=== PATIENT | male | born 1975 | race Caucasian/White ===

== ENCOUNTER 2025-03-21 18:52 | Emergency (ER) | payer BC, SELFPAY ==
[2025-03-21 19:04] VITALS: BP 161/86; PULSE 76; RESP 19; TEMP 36.9; O2SAT 96; BMI 30.7
--- OUTSIDE RECORDS SUMMARY | 2025-03-21 19:05 | XMS_ITS | Clinical Summary ---
Author Organization [employer] ([place], [place], [place], [place]) Address [address] [place] [address] Care Team Providers Care Health And Physical Education Professor Name Role Phone Asif Bowers MD Primary Care Provider [phone] Allergies No known active allergies Medications atorvastatin (LIPITOR) 40 MG tablet Take 1 tablet (40 mg total) by mouth nightly. Active cyclobenzaprine (FLEXERIL) 10 MG tablet Take 1 tablet (10 mg total) by mouth 3 (three) times daily as needed for muscle spasms. Active pantoprazole (PROTONIX) 40 MG tablet Take 1 tablet (40 mg total) by mouth daily. Active lisinopriL (PRINIVIL,ZESTRI L) 20 MG tablet Take 1 tablet (20 mg total) by mouth daily. Active metoprolol succinate (TOPROL-XL) 25 MG 24 hr tablet Take 1 tablet (25 mg total) by mouth daily. 01/27/2024 Active Active Problems Problem Noted Date Diagnosed Date Back pain 03/05/2024 03/05/2024 Resolved Problems Problem Noted Date Diagnosed Date Resolved Date Bradycardia 03/05/2024 03/05/2024 03/09/2024 Anxiety 03/05/2024 03/05/2024 03/09/2024 At risk for sleep apnea 03/05/2024 03/05/202402/17 Mediastinal adenopathy 02/06/202403/09 Gastroesophageal reflux disease 01/30/2024 01/30/2024 History of obstructive sleep apnea 01/30/2024202301/30/2024 Hyperlipidemia 01/30/2024 01/30/2024 01/30/2024 TIA (transient ischemic attack) 01/30/2024 01/30/2024 Pacemaker 01/30/2024 03/05/2024 Hypothyroidism 01/30/2024 01/30/2024 Angina pectoris 01/30/2024 01/30/2024 03/05/2024 Cardiac conduction disorder 01/30/2024 01/30/2024 03/05/2024 Pain 01/27/2024 01/30/2024 Hilar lymphadenopathy 01/27/20242023 Primary hypertension 08/23/2022 01/30/2024 024 Nonrheumatic aortic valve insufficiency 08/23/2022 0 01/30/2024 03/05/2024 Arteriosclerosis of coronary artery 08/05/202201/2903/05/2024 Overview (01/30/2024): a. LHC 09/08/2019: 40% LAD b. Echocardiogram 07/31/2019 EF 60%, mild AR, trace to mild MR, normal diastolic function, mild TR Obstructive sleep apnea syndrome 08/05/2022 01/30/20 24 03/05/2024 Sick sinus syndrome 08/23/2021 01/30/2024 01/30/20 Overview (01/30/2024): a. Status post pacemaker 04/2019 - Dr. 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 No 01/27/2024 Food Insecurity Answer Date Recorded Within the past 12 months, y ou worried that your food would run out before you got money to buy more. Never true 01/27/2024 Within the past 12 months, t he food you bought just didn't last and you didn't have money to get more. Never true 01/27/2024 Transportation Needs Answer Date Record ed In the past 12 months, has l ack of reliable transportation kept you from medical appointments, meetings, work or from getting things needed for daily living? No 01/27/2024 Financial Resource Strain Answer Date R ecorded How hard is it for you to pa y for the very basics like food, housing, medical care, and heating? Would you say it is: Not hard at all 01/27/2024 Employment Answer Date Recorded Do you want help finding or keeping work or a job? I do not need or want help 01/27/2024 Family and Community Support Answer Ji e Recorded If for any reason you need h elp with day-to-day activities such as bathing, preparing meals, shopping, managing finances, etc., do you get the help you need? I get all the help I need 01/27/2024 Feeling Lonely or Isolated 0 01/26 Educational Attainment Answer Date Avery rded Do you speak a language other than Bengali at [facility]? No 01/27/2024 Do you want help with school or training? For example, starting or completing job training or getting a high school diploma, GED or equivalent. No 01/27/2024 Physical Activity Answer Date Recorded Number of minutes of exercise per week 0 01/27/2024 Substance Use Answer Date Recorded How many times in the past y ear have you used prescription drugs for non-medical reasons? Never 01/27/2024 How many times in the past year have you used [place] legal drugs? Never 01/27/2024 Sex and Gender Information Value Date Recorded Sex Assigned at Male 02/20/2022 12:22 PM CDT Legal Sex Male 5:14 PM CDT Gender Identity Male 02/20/2022 12:22 PM CDT Sexual Orientation Not on file Last Filed Vital Signs Vital Sign Reading Time Taken Comments Blood Pressure 139/68 03/18/2024 1:10 PM EDT Pulse 81 03/18/2024 1:10 PM EDT Temperature 36.9 C (98.4 F) 03/18/2024 1:10 PM EDT Respiratory Rate 19 03/18/2024 1:10 PM EDT Oxygen Saturation 96% 03/18/2024 1:10 PM EDT ra Inhaled Oxygen Concentration - - Weight 103.4 kg (228 lb) 03/18/2024 1:10 PM EDT Height 180.3 cm (5' 11 ) 03/18/2024 1:10 PM EDT Body Mass Index 31.8 03/18/2024 1:10 PM EDT Plan of Treatment Health Maintenance Due Date Last Done Comments CT Colonography 1974 Colonoscopy 1974 Colorectal Cancer Screening 1974 FOBT/FIT 1974 Fit-DNA (Cologuard) 1974 Sigmoidoscopy 1974 Depression Screening (12+) 1986 HIV Screening 1989 Hepatitis C Screening 1992 Pneumococcal 50+ years (1 of 2 - PCV) 1993 DTAP/TDAP/TD VACCINES (2 - T d or Tdap) 10/22/2006 10/22/1996 COVID-19 VACCINE ( season) 2024 09/12/2021, 09/14/2020, 08/17/2020 Shingles Vaccine (Zoster) (1 of 2) 2024 Tobacco Cessation Counseling and Screening (12+) 03/18/2025 03/18/2024 Influenza Vaccine (#1) 2025 Lipid Panel 01/27/2027 01/28/2024, 02/22/2020 Medical Devices Implanted Type Area Gift Wrapper Device Identifier Shelf Expiration Date Model / Serial / Lot Pacemakers Pacemakers Subclavian Procedures Procedure Name Priority Date/Time Associated Diagnosis Comments LIPID PANEL STAT 01/28/2024 4:26 AM EDT from Last 3 Months or Most Recently Relevant to Health Maintenance Results * (ABNORMAL) Lipid panel (01/28/2024 4:26 AM EDT) Triglycerides 184 0 - 249 mg/dL 01/28/2024 5:[address] [facility] Cholesterol 140 0 - 199 mg/dL 01/28/2024 5:[address] [facility] Comment: 200 to 239 mg/dL = Moderate (borderline) >239 mg/dL = High HDL Cholesterol 29(L) >=40 mg/dL 01/28/2024 5:[address] [facility] Comment: >=60 mg/dL = Desirable <40 mg/dL = Increased Risk All other components are listed individually or are calculations VLDL Cholesterol 36.8 5 - 40 mg/dL 01/28/2024 5:[address] [facility] Cholesterol/HDL ratio 4.8(H) 0.0 - 3.2 01/28/2024 5:[address] [facility] LDl/HDL Ratio 3 0 - 4 01/28/2024 5:[address] [facility] RISK COMP 5 01/28/2024 5:[address] [facility] LDL Cholesterol, Calculated 74 0 - 99 mg/dL 01/28/2024 5:[address] [facility] Blood Venipuncture / Unknown 01/28/2024 4:26 AM EDT 01/28/2024 4:42 AM EDT us Rafita Cortez MD LAB BLOOD ORDERABLES Final Resul t Performing Organization Address City/State/[facility] Co de Phone Number [facility] [address] [phone] from Last 3 Months or Most Recently Relevant to Health Maintenance Insurance [employer] Advance Directives For more information, please contact: [phone] Documents on File Type Date Recorded Patient Senior Software Test Engineer Expl anation Advance Directives 01/27/2024 * Full Code (Latest Code Status on File) Date Activated Date Inactivated Comments 03/09/2024 11:58 AM 03/11/2024 8:42 AM * Full Code Date Activated Date Inactivated Comments 01/27/2024 8:55 AM 01/31/2024 11:19 AM Care Teams Health And Physical Education Professor Relationship Specialty Start Date End Date Asif Bowers MD [address] [place] [address] [place] [address] PCP - General Family Medicine 01/27/24
--- OUTSIDE RECORDS SUMMARY | 2025-03-21 19:05 | XMS_ITS | Encounter Summary ---
Author Organization Healthcare Address [address] [place] [address] Care Team Providers Care Electrical Appliance Mechanic Name Role Phone Asif Bowers MD Primary Care Provider Encounter Details Date Type Department Care Team (Late st Contact Info) Description 08/06/2022 Orders Only External Location [address] [place] [address] Provider, External Social History Tobacco Use Types Packs/Day Years Used Date Smoking Tobacco: Never Assessed Sex and Gender Information Value Date Recorded Sex Assigned at Not on file Legal Sex Male 6:55 PM EDT Gender Identity Not on file Sexual Orientation Not on file documented as of this encounter Plan of Treatment Not on file documented as of this encounter Procedures Procedure Name Priority Date/Time Associated Diagnosis Comments US CHEST 08/06/2022 8:39 AM EST documented in this encounter Results * US Chest (08/06/2022 8:39 AM EST) Anatomical Region Laterality Modality Chest Ultrasound 08/06/2022 8:39 AM EST us External Provider IMG US PROCEDURES Final Result documented in this encounter Visit Diagnoses Not on filedocumented in this encounter Care Teams Electrical Appliance Mechanic Relationship Specialty Start Date End Date Asif Bowers MD [facility] [place] [address] PCP - General 12/30/20 documented as of this encounter
--- OUTSIDE RECORDS SUMMARY | 2025-03-21 19:05 | XMS_ITS | Clinical Summary ---
Author Organization [facility] Address [address] [place] [address] Care Team Providers Care Strip Cutting Machine Operator Name Role Phone Asif Bowers MD Primary Care Provider [phone] Allergies No known active allergies Medications aspirin 81 MG EC tablet Take 81 mg by mouth 1 (one) time each day. 05/07/2022 Active atorvastatin (Lipitor) 40 MG tablet Take 40 mg by mouth every night. 08/21/2022 Active lisinopril 20 MG tablet Take 20 mg by mouth 1 (one) time each day. 08/03/2022 Active meloxicam (Mobic) 15 MG tablet Take 15 mg by mouth 1 (one) time each day. 07/05/2022 Active pantoprazole (Protonix) 40 MG EC tablet 1 (one) time each day. Active testosterone cypionate (Depo-Testoster one) 200 MG/ML injection INJECT 2ML IN THE MUSCLE EVERY 2 WEEKS DIRECTED 08/20/2022 Active venlafaxine XR (Effexor-XR) 75 MG 24 hr capsule Take by mouth 1 (one) time each day. 07/05/2022 Active nitroglycerin (Nitrostat) 0.[address] 0.4 mg under the tongue every 5 (five) minutes if needed for chest pain. Active metoprolol succinate XL (Toprol-XL) 50 MG 24 hr tablet 1 tablet (50 mg total) 1 (one) time each day. 90 tablet 1 08/24/2022 Active Active Problems Problem Noted Date Diagnosed Date Nonrheumatic aortic valve insufficiency 08/23/19 23 Coronary artery disease invo lving [place] coronary artery of [place] heart without angina pectoris 08/23/2022 Primary hypertension 08/23/2022 MATT (obstructive sleep apnea) 08/23/2022 Immunizations Immunization Administration Dates Next Due Rabies Immune Globulin 04/14/2024 Rabies, intramuscular 04/14/2024 Tdap 04/14/2024 Social History Tobacco Use Types Packs/Day Years Used Date Smoking Tobacco: Former Cigarettes Smokeless Tobacco: Never Tobacco Cessation:Counseling Given: Not Answered Sex and Gender Information Value Date Recorded Sex Assigned at Not on file Legal Sex Male 6:55 PM EDT Gender Identity Not on file Sexual Orientation Not on file Last Filed Vital Signs Vital Sign Reading Time Taken Comments Blood Pressure 150/95 04/14/2024 11:01 PM EDT Pulse 86 04/14/2024 11:01 PM EDT Temperature 36.6 C (97.9 F) 04/14/2024 11:01 PM EDT Respiratory Rate 18 04/14/2024 11:01 PM EDT Oxygen Saturation 98% 04/14/2024 11:01 PM EDT Inhaled Oxygen Concentration - - Weight 99.8 kg (220 lb) 04/14/2024 7:21 PM EDT Height 180.3 cm (5' 11 ) 04/14/2024 7:21 PM EDT Body Mass Index 30.68 04/14/2024 7:21 PM EDT Plan of Treatment Health Maintenance Due Date Last Done Comments [facility]-Depression Screening 1974 [facility]-HIV Screening 1974 [facility]-Hepatitis C Screening 1974 [facility]-/Child/Adol SDOH Screenings 1974 [facility]- SDOH Screenings 1992 [facility]-Adult SDOH Screenings 1992 CT Colonography 2019 Colonoscopy 2019 FIT-DNA 2019 FIT 2019 FOBT 2019 Sigmoidoscopy 2019 [facility]-Colorectal Cancer Screening 2019 [id number] Vaccine ( season) 2024 09/12/2021, 09/14/2020, 08/17/2020 [facility]-Pneumococcal Vaccine: 50 + Years (1 of 1 - PCV) 2024 [facility]-Zoster Vaccines (1 of 2) 2024 [facility]-Influenza Vaccine (#1) 2025 [facility]-DTaP,Tdap,and Td Vaccine s (2 - Td or Tdap) 04/14/2034 04/14/2024, 10/22/1996 [facility]-Hepatitis B Vaccines Completed 001, 06/13/2000, 05/16/2000 [facility]-Hepatitis A Vaccines Completed 019, 01/03/2001, 05/16/2000 [facility]-Obesity Intervention Completed 08/24/2022 HPV Vaccines Aged Out No longer eligi ble based on patient's age to complete this topic [facility]-HIB Vaccines Aged Out No longer e ligible based on patient's age to complete this topic [facility]-IPV Vaccines Aged Out No longer e ligible based on patient's age to complete this topic [facility]-Rotavirus Vaccines Aged Out No lo nger eligible based on patient's age to complete this topic Insurance [facility] [employer] Care Teams Strip Cutting Machine Operator Relationship Specialty Start Date End Date Asif Bowers MD [address] [place] [id number] PCP - General 12/30/20
--- OUTSIDE RECORDS SUMMARY | 2025-03-21 19:05 | XMS_ITS | Referral Summary ---
Author Organization [employer] ([place], [place], [place], [place]) Address [address] [place] [address] Care Team Providers Care Supply Chain Director Name Role Phone Asif Bowers MD Primary Care Provider [phone] Allergies No known active allergies Medications atorvastatin [...] Do you speak a language other than Faroese at [facility]? No 01/27/2024 Do you want help [...] 03/18/2024 1:10 PM EDT Plan of Treatment Not on file Medical Devices Implanted Type Area Treating Plant Operator Device Identifier Shelf Expiration Date Model / Serial / Lot Pacemakers Pacemakers Subclavian Procedures Procedure Name Priority Date/Time Associated Diagnosis Comments LIPID PANEL STAT 01/28/2024 4:26 AM EDT from Last 3 Months or Most Recently Relevant to Health Maintenance Results * (ABNORMAL) Lipid panel (01/28/2024 4:26 AM EDT) Triglycerides 184 0 - 249 mg/dL 01/28/2024 5:[address] [facility] [place] Cholesterol 140 0 - 199 mg/dL 01/28/2024 5:[address] [facility] [place] Comment: 200 to 239 mg/dL = Moderate (borderline) >239 mg/dL = High HDL Cholesterol 29(L) >=40 mg/dL 01/28/2024 5:[address] [facility] [place] Comment: >=60 mg/dL = Desirable <40 mg/dL = Increased Risk All other components are listed individually or are calculations VLDL Cholesterol 36.8 5 - 40 mg/dL 01/28/2024 5:[address] [facility] [place] Cholesterol/HDL ratio 4.8(H) 0.0 - 3.2 01/28/2024 5:[address] [facility] [place] LDl/HDL Ratio 3 0 - 4 01/28/2024 5:[address] [facility] [place] RISK COMP 5 01/28/2024 5:[address] [facility] [place] LDL Cholesterol, Calculated 74 0 - 99 mg/dL 01/28/2024 5:[address] [facility] [place] Blood Venipuncture / Unknown 01/28/2024 4:26 AM EDT 01/28/2024 4:42 AM EDT us Rafita Cortez MD LAB BLOOD ORDERABLES Final Resul t [facility] [place] [address] [phone] from Last 3 Months or Most Recently Relevant to Health Maintenance Insurance [employer] Advance Directives For more information, please contact: [phone] Documents on File Type Date Recorded Patient Museum Informatics Specialist Expl anation Advance Directives 01/27/2024 * Full Code (Latest Code Status on File) Date Activated Date Inactivated Comments 03/09/2024 11:58 AM 03/11/2024 8:42 AM * Full Code Date Activated Date Inactivated Comments 01/27/2024 8:55 AM 01/31/2024 11:19 AM Care Teams Supply Chain Director Relationship Specialty Start Date End Date Asif Bowers MD [address] [place] [address] [place] [address] PCP - General Family Medicine 01/27/24
--- OUTSIDE RECORDS SUMMARY | 2025-03-21 19:05 | XMS_ITS | Encounter Summary ---
Author Organization Healthcare Address [address] [place] [address] Care Team Providers Care Naphthalene Still Operator Name Role Phone Asif Bowers MD Primary Care Provider [phone] Encounter Details Date Type Department Care Team (Late st Contact Info) Description 08/06/2022 Orders Only External Location [address] [place] [address] Provider, External Social History Tobacco Use Types [...] Procedure Name Priority Date/Time Associated Diagnosis Comments PET OUTSIDE IMAGES 08/06/2022 9:29 AM EST documented in this encounter Results * PET OUTSIDE IMAGES (08/06/2022 9:29 AM EST) Anatomical Region Laterality Modality Nuclear Medicine 08/06/2022 9:29 AM EST us External Provider IMG NM PROCEDURES Final Result documented in this encounter Visit Diagnoses Not on filedocumented in this encounter Care Teams Naphthalene Still Operator Relationship Specialty Start Date End Date Asif Bowers MD [address] [place] [address] PCP - General 12/30/20 documented as of this encounter
--- OUTSIDE RECORDS SUMMARY | 2025-03-21 19:05 | XMS_ITS | Clinical Summary ---
Author Organization [facility] Address [address] [place] [address] Care Team Providers Care Ergonomics Technician Name Role Phone Preeti Anand APRN Primary Care Provider [phone] Allergies No known active allergies Medications lisinopril (PRINIVIL,ZESTR IL) 20 MG tablet Take 1 tablet by mouth Daily. 05/22/2021 Active Testosterone Cypionate (DEPOTESTOTERON E CYPIONATE) 200 MG/ML injection INJECT 2ML IN THE MUSCLE EVERY 2 WEEKS 07/31/2021 Active venlafaxine XR (EFFEXOR-XR) 75 MG 24 hr capsule Take 1 capsule by mouth Daily. 07/20/2021 Active pantoprazole (PROTONIX) 40 MG EC tablet Take 1 tablet by mouth Daily. Active meloxicam (MOBIC) 15 MG tablet Take 1 tablet by mouth Daily. Active metoprolol succinate XL (TOPROL-XL) 50 MG 24 hr tablet TAKE 1 TABLET BY MOUTH EVERY DAY 90 tablet 1 10/10/2023 Active atorvastatin (LIPITOR) 40 MG tablet TAKE 1 TABLET BY MOUTH EVERY NIGHT 90 tablet 1 02/03/2024 Active busPIRone (BUSPAR) 5 MG tablet 12/28/2024 Active cyclobenzaprine (FLEXERIL) 10 MG tablet Take 1 tablet by mouth. Active escitalopram (LEXAPRO) 10 MG tablet 12/28/2024 Active LORazepam (ATIVAN) 0.5 MG tablet 11/18/2024 Active ranolazine (RANEXA) 500 MG 12 hr tablet Take 1 tablet by mouth 2 (Two) Times a Day. Active tamsulosin (FLOMAX) 0.4 MG capsule 24 hr capsule 11/18/2024 Active Active Problems Problem Noted Date Diagnosed Date CAD (coronary artery disease) 08/05/2022 Overview (08/05/2022): a. LHC 09/08/2019: 40% LAD b. Echocardiogram 07/31/2019 EF 60%, mild AR, trace to mild MR, normal diastolic function, mild TR MATT on CPAP 08/05/2022 Tachycardia, paroxysmal 08/23/2021 Sick sinus syndrome 08/23/2021 Overview (08/05/2022): a. Status post pacemaker 04/2019 - Dr. Levy Displacement of lumbar inter vertebral disc without myelopathy 02/03/2016 Resolved Problems Problem Noted Date Diagnosed Date Resolved Date Chest pain 08/05/2022 08/06/2022 Encounters Date Type Department Care Team Description 01/04/2025 10:45 AM EDT Clinical Support No Requirements [facility] [address] [place] [id number] Sick sinus syndrome [I49.5] (Primary Dx) 01/04/2025 10:45 AM EDT Office Visit [facility] [address] [phone] Marcella Levy MD Pacemaker (Primary Dx); Hypertension, essential; Pure hypercholesterolemia 01/04/2025 [place] [place] [facility] [address] [phone] Marcella Levy MD 01/04/2025 Travel from Last 3 Months Family History Medical History Relation Name Comments Heart disease Father Hypertension Father Stroke Father Hypertension Mother Relation Name Status Comments Father Mother Social History Tobacco Use Types Packs/Day Years Used Date Smoking Tobacco: Former Passive Smoke Exposure: Past Smokeless Tobacco: Former Quit: 01/02/2006 Tobacco Cessation:Counseling Given: Yes Alcohol Use Standard Drinks/Week Comments Not Currently 0 (1 standard drink = 0.6 oz pur e alcohol) AUDIT-C Answer Date Recorded Q1: How often do you have a drink containing alc ohol? Monthly or less 08/05/2022 Q2: How many drinks containi ng alcohol do you have on a typical day when you are drinking? 3 or 4 08/05/2022 Q3: How often do you have si x or more drinks on one occasion? Less than monthly 08/05/2022 Abuse Screen Answer Date Recorded Feels Unsafe at Home or Work/School no 08/05/2022 Feels Threatened by Someone no 07/19 Does Anyone Try to Keep You From Having Contact with Others or Doing Things Outside Your Home? no 08/05/2022 Physical Signs of Abuse Present no 08/05/2022 Housing Stability Answer Date Recorded Current Living Arrangements home 07/19 Potentially Unsafe Housing Conditions Not on alf e 08/05/2022 Disabilities Answer Date Recorded Difficulty Concentrating, Remembering or Making Decisions no 08/05/2022 Difficulty Managing Errands Independently no 08/05/2022 Sex and Gender Information Value Date Recorded Sex Assigned at Not on file Legal Sex Male 11:23 AM EDT Gender Identity Not on file Sexual Orientation Not on file Last Filed Vital Signs Vital Sign Reading Time Taken Comments Blood Pressure 130/80 01/04/2025 11:10 AM EDT Pulse 75 01/04/2025 11:10 AM EDT Temperature 37.1 C (98.7 F) 08/06/2022 10:51 AM EST Respiratory Rate 18 08/06/2022 10:51 AM EST Oxygen Saturation 95% 01/04/2025 11:10 AM EDT Inhaled Oxygen Concentration - - Weight 105 kg (231 lb) 01/04/2025 11:10 AM EDT Height 180.3 cm (5' 11 ) 01/04/2025 11:10 AM EDT Body Mass Index 32.22 01/04/2025 11:10 AM EDT Plan of Treatment Upcoming Encounters Date Type Department Care Team (Late st Contact Info) Description 01/05/2026 11:30 AM EDT Office Visit [facility] [address] [phone] Marcella Levy MD [address] [id number] 01/05/2026 11:30 AM EDT Clinical Support No Requirements [facility] [address] [place] [phone] Health Maintenance Due Date Last Done Comments ANNUAL PHYSICAL 12/25/2017 HEPATITIS C SCREENING 12/25/2017 COLOGUARD 2019 COLON CANCER SCREENING 5 YEA R SIGMOIDOSCOPY 2019 COLONOSCOPY 2019 COL[address]ECTAL CANCER SCREENING 2019 CT COLONOGRAPHY 2019 FECAL OCCULT BLOOD TEST 2019 FIT Testing (1 year) 2019 COVID-19 Vaccine ( season) 2024 09/12/2021, 09/14/2020, 08/17/2020 Pneumococcal Vaccine 50+ (1 of 1 - PCV) 2024 ZOSTER VACCINE (1 of 2) 2024 LIPID PANEL 01/27/2025 01/28/2024, 01/28/2024 INFLUENZA VACCINE 05/19/2025 TDAP/TD VACCINES (3 - Td or Tdap) 04/14/2034 024, 10/22/1996 Procedures Procedure Name Priority Date/Time Associated Diagnosis Comments ECG 12-LEAD Routine 01/04/2025 11:58 AM EDT Pacemaker from Last 3 Months Results * ECG 12-LEAD (01/04/2025 11:58 AM EDT) Narrative Ladonna Stephen MA - 01/04/2025 11:58 AM EDT Marcella Levy MD 01/04/2025 12:06 PM ECG 12 Lead Date/Time: 01/04/2025 11:58 AM Performed by: Marcella Levy MD Authorized by: Marcella Levy MD Comparison: compared with previous ECG from 10/28/2023 Similar to previous ECG Rhythm: paced Rate: normal Conduction: conduction normal ST Segments: ST segments normal T Waves: T waves normal QRS axis: normal Other: no other findings Clinical impression: non-specific ECG Procedure Note Marcella Levy MD - 01/04/2025 10:45 AM EDT Images from the original note were not included. [facility] Provider Note Date: 01/04/2025 Name: Jameson Medina : 1975 PCP: Preeti Anand APRN Chief Complaint Patient presents with Pacemaker Check Hypertension Pt states he is here today for follow up HTN. No chest pain or SOA. Subjective History of Present Illness Jameson Medina is a 49 y.o. male with HTN, PM who presents today forfollow up. EKG updated today. Pacemaker check today. Reports that has had no chest pain or palpitations. Reports that has had no shortness of breath Has had no swelling. Reports no dizziness or lightheadedness. No falls. Reports no issues or concerns. No specialty comments available. No Known Allergies Current Outpatient Medications: atorvastatin (LIPITOR) 40 MG tablet, TAKE 1 TABLET BY MOUTH EVERY NIGHT,Disp: 90 tablet, Rfl: 1 busPIRone (BUSPAR) 5 MG tablet, , Disp: , Rfl: cyclobenzaprine (FLEXERIL) 10 MG tablet, Take 1 tablet by mouth., Disp:, Rfl: escitalopram (LEXAPRO) 10 MG tablet, , Disp: , Rfl: lisinopril (PRINIVIL,ZESTRIL) 20 MG tablet, Take 1 tablet by mouthDaily., Disp: , Rfl: LORazepam (ATIVAN) 0.5 MG tablet, , Disp: , Rfl: meloxicam (MOBIC) 15 MG tablet, Take 1 tablet by mouth Daily., Disp: ,Rfl: metoprolol succinate XL (TOPROL-XL) 50 MG 24 hr tablet, TAKE 1 TABLET BYMOUTH EVERY DAY, Disp: 90 tablet, Rfl: 1 pantoprazole (PROTONIX) 40 MG EC tablet, Take 1 tablet by mouth Daily.,Disp: , Rfl: ranolazine (RANEXA) 500 MG 12 hr tablet, Take 1 tablet by mouth 2 (Two)Times a Day., Disp: , Rfl: tamsulosin (FLOMAX) 0.4 MG capsule 24 hr capsule, , Disp: , Rfl: Testosterone Cypionate (DEPOTESTOTERONE CYPIONATE) 200 MG/ML injection,INJECT 2ML IN THE MUSCLE EVERY 2 WEEKS, Disp: , Rfl: venlafaxine XR (EFFEXOR-XR) 75 MG 24 hr capsule, Take 1 capsule by mouthDaily., Disp: , Rfl: Past Medical History: Diagnosis Date Anxiety Hypertension Sleep apnea inolterant to CPAP use. Past Surgical History: Procedure Laterality Date LUMBAR DISCECTOMY 01/09/2016 LEFT L5/S1 Disc (Dr. Casarez) NOSE SURGERY 1994 ROTATOR CUFF REPAIR 1998 Family History Problem Relation Age of Onset Hypertension Father Stroke Father Heart disease Father Hypertension Mother Social History Socioeconomic History Marital status: Number of children: 2 Tobacco Use Smoking status: Former Passive exposure: Past Smokeless tobacco: Former Quit date: 01/02/2006 Vaping Use Vaping status: Never Used Substance and Sexual Activity Alcohol use: Not Currently Drug use: No Sexual activity: Defer Objective Vital Signs: BP 130/80 (BP Location: Right arm, Patient Position: Sitting, Cuff Size:Adult) Pulse 75 Ht 180.3 cm (71 ) Wt 105 kg (231 lb) SpO2 95% BMI 32.22 kg/m Estimated body mass index is 32.22 kg/m as calculated from thefollowing: Height as of this encounter: 180.3 cm (71 ). Weight as of this encounter: 105 kg (231 lb). Physical Exam Constitutional: Appearance: Normal appearance. He is well-developed. HENT: Head: Normocephalic and atraumatic. Eyes: General: No scleral icterus. Pupils: Pupils are equal, round, and reactive to light. Cardiovascular: Rate and Rhythm: Normal rate and regular rhythm. Heart sounds: Normal heart sounds. No murmur heard. Pulmonary: Breath sounds: Normal breath sounds. No wheezing or rhonchi. Musculoskeletal: Right lower leg: No edema. Left lower leg: No edema. Skin: Capillary Refill: Capillary refill takes less than 2 seconds. Coloration: Skin is not cyanotic. Nails: There is no clubbing. Neurological: Mental Status: He is alert and oriented to person, place, and time. Motor: No weakness. Gait: Gait normal. Psychiatric: Mood and Affect: Mood normal. Behavior: Behavior is cooperative. Thought Content: Thought content normal. ECG 12 Lead Date/Time: 01/04/2025 11:58 AM Performed by: Marcella Levy MD Authorized by: Marcella Levy MD Comparison: compared with previousECG from 10/28/2023 Similar to previous ECG Rhythm: paced Rate: normal Conduction: conduction normal ST Segments: ST segments normal T Waves: T waves normal QRS axis: normal Other: no other findings Clinical impression: non-specific ECG Assessment and Plan ASSESSMENTS AND ORDERS Diagnoses and all orders for this visit: 1. Pacemaker (Primary) 2. Hypertension, essential 3. Pure hypercholesterolemia Other orders - ECG 12 Lead Other orders ECG 12 Lead PLAN -HTN well controlled -lipids reviewed from January 2024, well controlled but he thinks hehas hadmore recent -PM good battery life and lead function Follow Up Return in about 1 year (around 01/04/2026). Brian Levy MD Cardiology [facility] 01/04/2025 Please note that this explicitly excludes time spent on other separatebillable services such as performing procedures or test interpretation,when applicable. This note was created using dictation software which occasionallytranscribes nonsensical phrases. Please contact the provider if anyclarification is needed. us Marcella Levy MD ECG ORDERABLES Final Result from Last [address] [place] [address] EMPLOYEE Member Subscriber Plan / Payer (Ef fective 2024-Present) Name:Jameson Medina Relation to Subscriber:Self Name:Jameson Medina Payer ID:[id number] (NAIC) Type:Not on file Address: [facility] [address] [id number] Advance Directives * CPR (Attempt to Resuscitate) (Latest Code Status on File) Date Activated Date Inactivated Comments 08/05/2022 3:33 AM 08/06/2022 2:54 PM Question Answer Comments Code Status (Patient has no pulse and is not breathing): CPR (Attempt to Resuscitate) Medical Interventions (Patie nt has pulse or is breathing): Full Support Level Of Support Discussed With: Patient Care Teams Ergonomics Technician Relationship Specialty Start Date End Date Preeti Anand APRN [address] [facility] [place] [address] PCP - General Nurse Practitioner 01/04/25
--- NOTE | 2025-03-21 19:21 | XR_ITS ---
PROCEDURE INFORMATION: Exam: XR Left Ankle Exam date and time: 03/21/2025 7:28 PM Age: 49 years old Clinical indication: Injury or trauma; Other: Dropped door on left ankle; Blunt trauma; Ankle and foot TECHNIQUE: Imaging protocol: Radiologic exam of the left ankle. Views: 3 or more views. COMPARISON: CR XR FOOT LT 2V 03/21/2025 7:28 PM FINDINGS: Bones/joints: Normal. Soft tissues: Normal. IMPRESSION: No acute findings.
--- NOTE | 2025-03-21 19:21 | XR_ITS ---
PROCEDURE INFORMATION: Exam: XR Left Foot Exam date and time: 03/21/2025 7:28 PM Age: 49 years old Clinical indication: Injury or trauma; Other: Dropped door on left ankle; Blunt trauma; Ankle and foot; Additional info: Dropped door on left foot TECHNIQUE: Imaging protocol: Radiologic exam of the left foot. Views: 1 or 2 views. COMPARISON: CR XR FOOT LT 2V 03/21/2025 7:28 PM FINDINGS: Bones/joints: Normal. Soft tissues: Normal. IMPRESSION: No acute findings.
--- NOTE | 2025-03-21 19:24 | ED_ITS ---
<Statement entered by Sameera Roman MD - 03/21/25 23:18> I was consulted by the PATO, and we discussed the complexity of the problems being addressed. I approved the treatment and management plan for this patient's care in the emergency department, thus performing a substantive portion of the medical decision making. Sameera Roman MD, CECILIO, FACEP Discharge Plan Disposition Patient Disposition: Home, Self-Care Referrals Follow up/Referrals: Yong Tan DO [Staff Physician, Orthopedics] - See instructions Preeti Aannd APRN [Primary Care Provider, Medical] - See instructions Activity Restrictions/Add. Instructions Additional Instructions/Restrictions: Today you were evaluated and had x-rays performed, they were unremarkable for any acute fracture. Please wear the walking boot for comfort for approximately 1 to [address] Tan's office for follow-up. Clinical Impressions Clinical Impression: Foot pain, left, Ankle pain, left Instructions Patient Instructions: DI for Foot Pain Print Language Print Language: Amharic Discharge ED Provider: Sameera Roman General Adult HPI General Chief complaint: PAIN Stated complaint: AO 03/18/25 1400 Injury left ankle Time Seen by Provider: 03/21/25 19:08 Mode of Arrival: Ambulatory Source of Information: Patient Description of Symptoms (Recalled from ER Triage Doc. by RN): pt presents to ED with c/o left ankle injury. pt reports that he was working on door when the door come down and smashed into his ankle. accident occured on saturday. pt reports that last night it began to open up more and has been swelling. History of Present Illness HPI narrative: patient is a 49-year-old male PMH pacemaker for bradycardia who presents to the ED after dropping a door on his left ankle and left foot approximately 1 week ago. Patient states he initially did not have that much pain however after walking, wearing a sock over his foot and ankle he has developed pain. Related Data Allergies Allergy/AdvReac Type Severity Reaction Status Date / Time No Known Allergies Allergy Verified 03/21/25 19:06 [facility] Disclaimer: The information contained in this section may have been updated after the patient was seen, as this information can be updated by other users. Social History Smoking Status: Never smoker alcohol intake: never current occupational status: employed Travel in the last 8 weeks?: None ROS Obtained: Yes Systems reviewed as appropriate & no additional complaints except as documented Physical Exam General General appearance: alert and in no apparent distress Head Head exam: atraumatic Eye Eye exam: Present PERRL and EOMI Neck Neck exam: Present normal inspection Respiratory Respiratory exam: Present normal lung sounds bilaterally Cardiovascular Cardiovascular exam: Present regular rate Abdominal Exam Abdominal exam: Present soft Back Exam Back exam: Present full ROM Neurological Exam Neurological exam: Present alert and oriented X3 Skin Skin exam: Present warm and dry Medical Decision Making Medical Records Screening: Per USPSTF and CDC recommendations, given the prevalence of disease in our region, it is our hospital?s policy to screen for HIV and viral Hepatitis for all patients aged 18 and over and those with ongoing risk factors. Jose Inquiry Pt receiving controlled substance: No Vital Signs: 03/21/25 19:04 03/21/25 19:51 Temperature 98.4 F Temperature Source Oral Pulse Rate 63 Pulse Rate [Left Radial] 76 Respiratory Rate 19 13 Blood Pressure 175/81 H Blood Pressure [Right Arm] 161/86 H Blood Pressure Mean [Right Arm] 111 02 Sat by Pulse Oximetry 96 96 Orders (Tests/Meds): ORDERS Category Date Time Status Ankle XR - Left minimum 3 Views [XR ankle LT min 3V] Exams 03/21/25 19:21 Completed Stat Foot XR left 2 views [XR foot LT 2V] Stat Exams 03/21/25 19:21 Completed Medical Decision Narrative: In summary, patient is a 49-year-old male H pacemaker for bradycardia who presents to the ED after dropping a door on his left ankle and left foot approximately 1 week ago. Patient states he initially did not have that much pain however after walking, wearing a sock over his foot and ankle he has developed pain. He also has a open area approximately the size of a quarter on his left medial ankle. Patient states he has been keeping Neosporin and a bandage over the area. Denies any other injuries. Denies fever, chills, body aches, chest pain, shortness of breath, abdominal pain, nausea, vomiting. Upon initial evaluation patient is alert, oriented and cooperative. He is hemodynamically stable. Physical exam remarkable for mildly left foot that is generally swollen, purple bruising noted on the medial aspect of foot. Mild left ankle swelling on the medial aspect. Patient has full range of motion. Neurovascular status intact. Discussed with patient we will proceed with x-ray of the left ankle and foot. He declines any pain medication at this time. X-ray unremarkable for any acute fracture. Patient was placed in a walking boot for comfort and advised to follow-up with Dr. Cm. He is advised to wear the walking boot until pain resolved. We discussed that he will need to cover up the abrasion on the left inner aspect of his ankle until then. Discussed taking acetaminophen and ibuprofen [id number] for symptomatic relief. Patient verbalized understanding, stated that the walking boot helped with his pain. Critical Care Critical Care Time Critical Care Time: No
[2025-03-21 19:51] VITALS: BP 175/81; PULSE 63; RESP 13; O2SAT 96
[2025-03-21 21:01] VITALS: BP 161/94; PULSE 62; RESP 16; TEMP 37.2; O2SAT 95
== END 2025-03-21 21:02 | disposition home or self-care (01) ==
PROVIDERS: Emergency Provider Student in an Organized Health Care Education/Training Program; PCP Nurse Practitioner
DX: M25.572 Pain in left ankle and joints of left foot (principal); M79.672 Pain in left foot
CPT/HCPCS: 73610; 73620; 99284